=== PATIENT | male | born 1970 | race Caucasian/White ===

== ENCOUNTER → 2018-03-07 | Outpatient (CLI) | payer OTHER | END | disposition home or self-care (01) | LOC: KCIC US 07:43 | DX: K76.0 Fatty (change of) liver, not elsewhere classified (principal) | CPT/HCPCS: 76705 ==

== ENCOUNTER → 2019-10-29 | Outpatient (CLI) | payer OTHER ==
--- NOTE | 2019-10-29 14:30 | KCIC ---
MR of the right shoulder HISTORY: Right shoulder pain. TECHNIQUE: Routine multiplanar sequences are obtained. FINDINGS: Mild degenerative change at the acromioclavicular joint. Full-thickness rotator cuff tear at the posterior supraspinatus tendon through infraspinatus tendon. 1 or 2 cm retraction. This extends into a deep articular surface tear of the supraspinatus tendon. Mild fluid in the subdeltoid bursa.Subscapularis tendinosis. No significant glenohumeral joint effusion. No evidence of labral tear. Biceps tendon is intact. No acute fracture. No aggressive bone destruction. Mild intramuscular infraspinatus and teres minor muscle edema, has the distribution pattern of a mild strain or contusion. This could indicate recent nature of rotator cuff tear. IMPRESSION: Full-thickness mildly retracted rotator cuff tear of the infraspinatus tendon, with deep side tearing of the supraspinatus tendon. Subscapularis tendinosis. Mild intramuscular infraspinatus and teres minor edema suggesting recent injury. Electronically signed by: Des Rodriguez MD (10/29/2019 2:27 PM) [email or web address]
== END | disposition home or self-care (01) ==
LOC: KCIC MRI 12:47
PROVIDERS: ATTEND Family Medicine
DX: M75.121 Complete rotator cuff tear or rupture of right shoulder, not specified as traumatic (principal)
CPT/HCPCS: 73221